=== PATIENT | female | born 1935 | race Two or more races ===

== ENCOUNTER 2017-05-17 19:58 | Emergency (ER) | payer MEDICARE, MEDICAID ==
[~2017-05-17] VITALS: Ht 154.9 cm; Wt 49.9 kg
[2017-05-17 19:58] VITALS: BP 160/82
[2017-05-17] MEDS ORDERED: oxyCODONE HCL/Acetaminophen 5/325mg ORAL ONE (20:00)
--- NOTE | 2017-05-17 20:04 | Emergency Room Report ---
History of Present Illness General Chief Complaint: Multiple Trauma/Fall Source: Patient, Family Member, EMS (DEREK COOK M.D.) Present Illness HPI 81YOF BIBEMS from [employer] store after alleged slip and fall and land on lower back History of OA, chronic pain States hit head but no LOC. Not on ASA, AC Denies pain to neck C/o pain to lower back but denies numbness/tingling to lower extremities (DEREK COOK M.D.) Allergies: Coded Allergies: ALBUTEROL (Verified Allergy, Unknown, 05/17/17) AMOXICILLIN (Verified Allergy, Unknown, 05/17/17) CIPROFLOXACIN (Verified Allergy, Unknown, 05/17/17) CLARITHROMYCIN (Verified Allergy, Unknown, 05/17/17) CODEINE (Verified Allergy, Unknown, 05/17/17) DILTIAZEM (Verified Allergy, Unknown, 05/17/17) ENALAPRIL (Verified Allergy, Unknown, 05/17/17) EPINEPHRINE (Verified Allergy, Unknown, 05/17/17) ERYTHROMYCIN BASE (Verified Allergy, Unknown, 05/17/17) LISINOPRIL (Verified Allergy, Unknown, 05/17/17) MORPHINE (Verified Allergy, Unknown, 05/17/17) NIFEDIPINE (Verified Allergy, Unknown, 05/17/17) PENICILLINS (Verified Allergy, Unknown, 05/17/17) PROPOXYPHENE (Verified Allergy, Unknown, 05/17/17) PSEUDOEPHEDRINE (Verified Allergy, Unknown, 05/17/17) TETRACYCLINES (Verified Allergy, Unknown, 05/17/17) Patient History Past Medical History: see triage record, other - Arthritis Past Surgical History: none Pertinent Family History: none Social History: Denies: smoking, alcohol use, drug use Last Menstrual Period: n/a Now: No Immunizations: UTD Reviewed Nursing Documentation: PMH: Agreed, PSxH: Agreed (DEERK COOK M.D.) Nursing Documentation-PMH Past Medical History: No History, Except For Hx Hypertension: Yes Hx Cancer: Yes - Stomach Cx (DEREK COOK M.D.) Review of Systems All Other Systems: negative except mentioned in HPI (DEREK COOK M.D.) Physical Exam Vital Signs Date Time Temp Pulse Resp B/P (MAP) Pulse Ox O2 Delivery O2 Flow Rate FiO2 05/17/17 19:45 97.5 74 16 160/82 98 Room Air Sp02 EP Interpretation: reviewed, normal General Appearance: normal inspection, well appearing, no apparent distress, alert, GCS 15, non-toxic, other - Well appearing elderly lady sitting upright in stretcher Head: normocephalic, atraumatic Eyes: bilateral eye PERRL, bilateral eye EOMI ENT: normal ENT inspection, hearing grossly normal, normal voice Neck: normal inspection, full range of motion, supple, no bony tend, other - No posterior c-spine ttp Respiratory: normal inspection, lungs clear, normal breath sounds, no respiratory distress, no retraction, no wheezing Cardiovascular #1: regular rate, rhythm, no edema Gastrointestinal: normal inspection, normal bowel sounds, non tender, soft, no guarding, no hernia Genitourinary: no CVA tenderness Musculoskeletal: normal inspection, back normal, normal range of motion, Rocío' s Sign negative, other - Mild TTP LS spine, no obvious ecchymoses, trauma Neurologic: normal inspection, alert, oriented x3, responsive, acid retort operator III-XII nml as tested, speech normal Psychiatric: normal inspection, judgement/insight normal, mood/affect normal Skin: normal inspection, normal color, no rash (DEREK COOK M.D.) Medical Decision Making Diagnostic Impression: Primary Impression: Fall Qualified Codes: W19.XXXA - Unspecified fall, initial encounter Additional Impression: Lower back pain Qualified Codes: M54.5 - Low back pain ER Course 81YOF with accidental slip/fall at store [employer]. Afebrile No focal neuro deficits C.o pain from "head to back" however only area of concern is lower back Analgesia provided CT LS spine in progress at time of signout to Dr Gilman at 930pm. (DEREK COOK M.D.) ER Course This patient was signed out to me. She presents with a fall and back pain. She had a CT scan that was pending. CT scan showed arthritic changes and degenerative changes. Nothing acute. Patient pain is well-controlled. We'll discharge home. A copy of the CT reading will be Given to the patient. (LACI GILMAN M.D.) CT/MRI/US Diagnostic Results CT/MRI/US Diagnostic Results : Imaging Test Ordered: CT scan lumbar spine Impression Read by radiologist. No fracture or malalignment. Multilevel degenerative changes. Nonspecific sclerotic lesion right aspect of S1. (LACI GILMAN M.D.) Last Vital Signs Date Time Temp Pulse Resp B/P (MAP) Pulse Ox O2 Delivery O2 Flow Rate FiO2 05/17/17 19:45 97.5 74 16 160/82 98 Room Air Status: improved (DEREK COOK M.D.) Disposition: HOME, SELF-CARE Condition: Stable Additional Instructions: Followup with your Dr. in 2-3 days. Return if worse. DEREK COOK M.D. May 17, 2017 20:04 LACI GILMAN M.D. May 17, 2017 22:07
[2017-05-17 21:54] VITALS: BP 153/60
[2017-05-17 22:22] VITALS: BP 153/60
--- NOTE | 2017-05-19 09:36 | Diagnostic Imaging Report ---
INDICATION: Low back pain TECHNIQUE: Helical CT images of the lumbar spine were obtained without administration of intravenous contrast per departmental protocol. Multiplanar reformations in the coronal and sagittal planes are provided. CTDIvol: 11 DLP: 306 COMPARISON: None. FINDINGS: The lumbar alignment is maintained. The vertebral body heights are maintained. There is no evidence of acute fracture. The visualized paraspinal muscles and prevertebral soft tissues are unremarkable. Diffuse disc bulge, ligamentum flavum thickening, and facet arthropathy result in mild spinal canal and mild to moderate bilateral neural foraminal stenosis at L3-L4, L4-L5 and L5-S1. There is a 13 mm sclerotic focus in the right upper sacrum, which is nonspecific. There is increased stranding of the partially imaged left mid and upper abdomen mesenteric fat which is nonspecific. Consider abdomen/pelvis CT for further evaluation, as clinically warranted. Small hiatal hernia noted. Postsurgical leandro and sutures are noted in the upper abdomen. Correlate with surgical history. IMPRESSION: 1. No CT evidence of acute lumbar spine fracture or subluxation. 2. Degenerative changes at L3-L4 through L5-S1 resulting in mild central canal and mild-moderate bilateral neural foramina narrowing. 3. Nonspecific 13 mm sclerotic focus in the right upper sacrum. 4. Increased stranding of the partially imaged left hemiabdomen may reflect an acute infectious or inflammatory changes. Mesenteric adenitis is a differential consideration. Abdomen/pelvis CT may be considered for further evaluation, as clinically warranted. 5. Postsurgical changes in the upper abdomen. Small hiatal hernia noted.
== END 2017-05-17 22:22 | disposition home or self-care (01) ==
LOC: EDBD 19:58 → EMR 22:15
DX: M54.5 Low back pain (principal); W01.0XXA Fall on same level from slipping, tripping and stumbling without subsequent striking against object, initial encounter; Y92.512 Supermarket, store or market as the place of occurrence of the external cause; I10 Essential (primary) hypertension; Z85.028 Personal history of other malignant neoplasm of stomach; Z88.6 Allergy status to analgesic agent; Z88.1 Allergy status to other antibiotic agents; Z88.0 Allergy status to penicillin; Z88.8 Allergy status to other drugs, medicaments and biological substances
CPT/HCPCS: 72131; 99284